=== PATIENT | female | born 1955 | race Caucasian/White ===

== ENCOUNTER → 2022-03-30 | Outpatient (CLI) | payer MEDICARE, MEDICAID, SELFPAY ==
[2022-03-30] MEDS: Methacholine Chloride 18 ml neb kit INHALATION (06:53)
--- NOTE | 2022-03-30 13:24 | BRONCHALL ---
Bronchoprovocation Challenge Bronchoprovocation Challenge Bronchoprovocation Challenge: INTRODUCTION: The patient is a 66-year-old female that presents for a bronchoprovocation challenge secondary to a diagnosis of dyspnea. Respiratory therapy reported good patient effort and reproducible results. INTERPRETATION: Initial spirometry did not show any large airways obstructive ventilatory defect and preserved airflows throughout. The patient was then given progressively increasing doses of methacholine in a standardized fashion. At no point during testing did the patient's FEV1 drop to the threshold criteria to be considered a positive test. IMPRESSION: Negative methacholine inhalation challenge.
== END | disposition home or self-care (01) ==
LOC: PSN 06:38
PROVIDERS: PCP Student in an Organized Health Care Education/Training Program
DX: R06.09 Other forms of dyspnea (principal)
CPT/HCPCS: 94070; 95070

== ENCOUNTER → 2022-05-08 | Outpatient (CLI) | payer MEDICARE, MEDICAID, SELFPAY ==
--- NOTE | 2022-05-08 | FLU_PTH ---
PATIENT: LISA SINGH LOC: [facility] U#:[id number] AGE/SX: 66/F ROOM: RE05/08/[address]: Dr. Radha De Guzman MD : 1955 BED: DIS: 05/08/2022 SPEC #: [id number] RECD: 05/08/22 06:35 STATUS: YAEL REQ #: [id number] FIDEL: 05/08/22 00:[address]: Radha De Guzman DEPT: CYTOLOGY RECD BY: Tyron Harper ENTERED: 05/09/22 06:35 SP TYPE: Fluid OTHR DR: Dr. Mohan Flores DO Tissues: A - Thyroid gland, NOS B - Thyroid gland, NOS Procedures: Special Stain Group II Surgery Specimen Level IV Cytospin Fluid HEADER OPERATION: Fine needle aspiration left thyroid PRE-OP DIAGNOSIS: Thyroid nodule TISSUE SUBMITTED: A ? FNA left thyroid nodule fluid, B - FNA left thyroid nodule x6 slides DIAGNOSIS CYTOLOGY A. Left thyroid nodule fluid, fine needle aspiration (cytospin and cell block): Consistent with benign colloid nodule with cystic changes ([place] Category II). Adequate for evaluation. See comment. B. Left thyroid nodule, fine needle aspiration (smears): Consistent with benign colloid nodule with cystic changes ([place] Category II). Adequate for evaluation. See comment. SJ:yaya 05/09/2022 COMMENT Correlation with clinical, radiologic findings and appropriate follow up are necessary. CYTOLOGY STUDY Slides are reviewed. CYTOLOGY GROSS A - Received is 30 ml of brown cloudy fluid labeled with the patient's name and and designated per the requisition as left thyroid nodule. Submitted for cytology preparation including cell block. B - Received are six smears labeled with the patient's name and designated per the requisition as left thyroid nodule. Submitted for staining. / yaya 05/08/2022 TC:5 CPT: 47651 x2, 23962
== END | disposition home or self-care (01) ==
PROVIDERS: PCP Student in an Organized Health Care Education/Training Program; Visit Provider Surgery
DX: E04.1 Nontoxic single thyroid nodule (principal)
CPT/HCPCS: 88108; 88305; 88313

== ENCOUNTER → 2023-04-09 | Outpatient (CLI) | payer MEDICARE, MEDICAID, SELFPAY ==
--- NOTE | 2023-04-09 | FLU_PTH ---
PATIENT: LISA SINGH LOC: [facility] U#:[id number] AGE/SX: 67/F ROOM: RE04/09/[address]: Dr. Radha De Guzman MD : 1955 BED: DIS: 04/09/2023 SPEC #: [id number] RECD: 04/10/23 08:06 STATUS: YAEL RELeslie #: [id number] FIDEL: 04/09/23 00:[address]: Radha De Guzman DEPT: CYTOLOGY RECD BY: Shannan Baltazar ENTERED: 04/10/23 08:08 SP TYPE: Fluid OTHR DR: Dr. Mohan Flores DO Tissues: A - Thyroid gland, NOS B - Thyroid gland, NOS Procedures: Special Stain Group II Surgery Specimen Level IV Cytospin Fluid HEADER OPERATION: Fine needle aspiration left lower thyroid PRE-OP DIAGNOSIS: Abnormal thyroid ultrasound TISSUE SUBMITTED: A - Left lower thyroid fluid, B - Left lower thyroid x6 slides DIAGNOSIS CYTOLOGY A. Fine needle aspiration, left lower thyroid nodule (cytospin and cell block): Macrophages consistent with benign cyst contents. No evidence of malignancy. B. Fine needle aspiration, left lower thyroid nodule (smears): Consistent with benign follicular nodule with cystic change, [place] Category II. See comment. AM:yaya 04/11/2023 COMMENT B. The [place] System for thyroid diagnostic categorization was used in the evaluation of this case. Adequate for evaluation. CYTOLOGY STUDY Slides are reviewed. CYTOLOGY GROSS A - Received is 30 ml of yellowish cloudy fluid labeled with the patient's name and and designated per the requisition as left lower thyroid. Submitted for cytology preparation including cell block. B - Received are six smears labeled with the patient's name and designated per the requisition as left lower thyroid. Submitted for staining. / yaya 04/10/2023 TC:5 CPT: 65912 x2, 60891
== END | disposition home or self-care (01) ==
LOC: LABSPEC 16:49
PROVIDERS: PCP Student in an Organized Health Care Education/Training Program; Referring Provider Surgery; Visit Provider Surgery
DX: R93.89 Abnormal findings on diagnostic imaging of other specified body structures (principal)
CPT/HCPCS: 88108; 88305; 88313

== ENCOUNTER 2023-09-02 23:26 | Emergency (ER) | payer MEDICARE, MEDICAID, SELFPAY ==
[2023-09-02 23:28] VITALS: BP 119/51; PULSE 64; RESP 20; TEMP 36.6; O2SAT 92; BMI 38.9
--- NOTE | 2023-09-02 23:44 | EDS_ITS ---
HPI History of Present Illness Chief Complaint: Allergic Reaction Informant: patient and spouse/S.O. Narrative Narrative: 68-year-old female presenting to the emergency room out of concern for rash. Patient states that in the middle of June she began to take gabapentin. She states that she was taken off of Tegretol which she was taking for seizures. She was seen neurology at [facility]. She states she was taking it for about 6 weeks when she began to notice some itching particularly on the back. States she also does experience some itching on the left leg and foot. She states that now for the past several weeks she has been itching on her back and noticed some redness in the left flank. Tonight after shower her noticed it was red looked at the medication was concerned out of Stanford-Jairo syndrome and the fact that she had some flaking skin thought perhaps her skin was peeling. She denies any respiratory or oral pharyngeal symptoms. She notes the rash only on the left flank left leg. [facility] Medical History Seizures Allergy/AdvReac Type Severity Reaction Status Date / Time doxycycline AdvReac Upset Verified 09/02/23 23:28 Stomach erythromycin base AdvReac Upset Verified 09/02/23 23:28 Stomach morphine AdvReac Other Verified 09/02/23 23:28 zonisamide AdvReac Other Verified 09/02/23 23:28 Social History Smoking Status: Never smoker ROS [facility] ED Constitutional Constitutional ED: Denies chills, fever(s) or weight loss Eyes Eyes: Denies change in vision or diplopia ENT ENT ED: Denies ear pain, rhinorrhea or sore throat Cardiovascular Cardiovascular: Denies chest pain, orthopnea, palpitations or racing heartbeat Respiratory/Chest Respiratory/Chest: Denies cough, dyspnea or orthopnea Gastrointestinal Gastrointestinal: Denies abdominal pain, diarrhea, nausea or vomiting Genitourinary Genitourinary ED: Denies dysuria, hematuria or urinary frequency Musculoskeletal Musculoskeletal: Denies arthralgias or myalgias Integumentary Reports rash and other Details: Pruritus ; Denies abscess Neurologic Neurologic: Denies headache(s) or weakness Psychiatric Psychiatric: Denies anxiety, depression, suicidal ideation or suicidal thoughts Endocrine Endocrinology: Denies polydipsia, polyphagia or polyuria Allergic/Immunologic Allergic/Immunologic ED: Denies mouth swelling, tongue swelling or urticaria EXAM Physical Exam Const Vital Signs: 09/02/23 23:28 09/03/23 00:29 Temperature 97.8 F 97.9 F Temperature Source Oral Pulse Rate 64 65 Respiratory Rate 20 H 16 Blood Pressure 119/51 L 119/51 L Blood Pressure Mean 73 73 Pulse Ox 92 99 Oxygen Delivery Method Room Air Positive well nourished, well developed and obese General Appearance ED: well developed Nutritional Appearance: obese HEENT Reports normocephalic, head/scalp atraumatic and moist mucous membranes Eyes PERRL and EOMs intact bilaterally Neck no lymphadenopathy, supple and no JVD Resp normal respiratory effort and clear to auscultation bilaterally Cardio regular rate, regular rhythm and no murmurs GI normal to inspection, nondistended, normoactive bowel sounds and non-tender Palpation: soft Back/Spine no CVA tenderness and normal ROM Extremity normal to inspection General Extremety ED: Negative for edema General Extremity: Negative for edema Neuro oriented x3 and CN's II-XII intact bilaterally Sensorium / Orientation: alert Motor Exam: strength 5/5 throughout Psych mental status grossly normal Mood & Affect: Negative for depressed or tearful Skin no wounds Skin Narrative: I do not see any rash on the left leg. The left flank region is erythematous and blanches. No sloughing of the skin. No hives. MDM MDM MDM Narrative Medical decision making narrative: I am not seeing any obvious evidence of Stanford-Jairo or hives. Slightly erythematous area in the left flank. Initially from the looks of it it could simply just be from laying up against the bed but the states that is what he was noticing after her shower. Not seeing rash anywhere else on her body. She has been on the medication for some time and is not looking like a diffuse drug eruption. When I have her call her doctor tomorrow. Monitor tonight for any clinical changes. History & Record Review Discussion w/independent historian: Patient and Significant other Discharge Plan Triage Chief Complaint: Allergic Reaction ED Provider: Seth Jennings Dx/Rx/DC Orders Clinical Impression: Rash, Pruritus Instructions: Nonspecific Skin Rash Primary Care Provider: Mohan Flores Referrals: Mohan Flores, DO [Primary Care Provider] - 3-5 Days if not improving Activity Restrictions/Additional Instructions: Please call your neurologist tomorrow to discuss possible medication change. I think it is reasonable to hold your gabapentin tonight. Please monitor for any worsening symptoms such as respiratory problems swelling of the mouth and tongue or peeling off skin. Disposition Disposition: Home, Self Care Discharge Date/Time: 09/03/23 00:31
[2023-09-03 00:29] VITALS: BP 119/51; PULSE 65; RESP 16; TEMP 36.6; O2SAT 99
== END 2023-09-03 00:31 | disposition home or self-care (01) ==
PROVIDERS: Emergency Provider Emergency Medicine; PCP Student in an Organized Health Care Education/Training Program; Visit Provider Emergency Medicine
DX: L29.9 Pruritus, unspecified (principal); R56.9 Unspecified convulsions; E66.9 Obesity, unspecified; R21 Rash and other nonspecific skin eruption
CPT/HCPCS: 99282